=== PATIENT | male | born 1935 | race Caucasian/White ===

== ENCOUNTER 2023-10-09 12:08 | Inpatient (IN) | payer OTHER, SELFPAY ==
[2023-10-09] VITALS (10 sets, daily range): BP systolic 142–172; BP diastolic 56–74; BMI 23.7
[2023-10-09 09:51] LABS: % Basophils 0.3 % (0-2); % Eosinophils 0.8 % (0-6); % Immature Granulocytes 0.5 % (0-0.5); % Lymphocytes 8.7 % (20.5-51.1); % Monocytes 6.3 % (1.7-9.3); % Neutrophils 83.4 % (42.2-75.2); Absolute Basophils 0.1 10^3/uL (0-0.2); Absolute Eosinophils 0.2 10^3/uL (0-0.7); Absolute Immature Granulocytes 0.1 10^3/uL (0-0.05); Absolute Lymphocytes 1.8 10^3/uL (1.2-3.4); Absolute Monocytes 1.3 10^3/uL (0.1-0.6); Absolute Neutrophils 17.6 10^3/uL (1.4-6.5); Hematocrit 35.3 % (39.0-52.0); Hemoglobin 12.1 g/dL (13.0-18.0); Mean Corp Hgb Conc. 34.3 g/dL (33.0-37.0); Mean Corpuscular Hgb 31.4 pg (27.0-31.0); Mean Corpuscular Volume 91.7 fL (80.0-94.0); Mean Platelet Volume 10.7 fL (7.4-10.4); Nucleated Red Blood Cells % 0 % (-); Platelet Count 239 10^3/uL (130-400); Red Blood Cell Count 3.85 10^6/uL (4.70-6.10); Red Cell Dist. Width 13.2 % (11.5-14.5); White Blood Cell Count 21.1 10^3/uL (4.8-10.8)
--- NOTE | 2023-10-09 10:01 | ED.GENMED ---
History of Present Illness
General
Chief Complaint: Weakness
Source: patient
Exam Limitations: none
Time Seen by Provider: 10/09/23 09:39
Nursing documentation reviewed up to this point in time: agreed with
Travel History
Have you had any contact with someone who has COVID-19?: No
Do you have any symptoms of coronavirus? Fever > 100 degrees, chills, cough, shortness of breath, sore throat, loss of taste or smell, muscle aches, or headache?: No
History of Present Illness
History of Present Illness:
88-year-old male with past medical history of hip fracture to left side 2021, BPH with indwelling Nunez presenting to the emergency department today with concerns of generalized weakness fatigue worsening over the past few days has had some degree
of fatigue over the past few months. Denies any recent illness upper respiratory infection chest pain shortness of breath no specific urinary issues has had some mild left-sided hip pain but does have a history of arthritis to the area and had
previous repair in 2021 after fracture. Denies any change in bowel movements black or tarry stool.
Review of Systems
Review of Systems
Allergies reviewed?: Yes
All Other Systems: ROS reviewed and negative except as documented in HPI and ROS
Phy Exam
Physical Exam
Physical Exam:
GENERAL: Alert , in no apparent distress
EYE: pupils equal and reactive
NECK: Supple, no significant adenopathy.
ENT: o/p clr, mmm.
CARDIAC: Regular rate and rhythm .
LUNGS: Clear breath sounds bilaterally, no acute respiratory distress, no wheezes/rales/rhonchi
ABDOMEN: Soft, without focal tenderness, no r/g, no cvat
NEUROLOGICAL: Alert and oriented, no focal neuro deficits
SKIN: Warm and dry, skin intact.
MUSCULOSKELETAL: No edema, well perfused.
PSYCH: Normal and appropriate interaction.
Course
Orders/Labs/Results
Orders:
Orders
10/09/23
Electrocardiogram (*1) Stat
Reason for Study: Chest Pain
Comment: DONE
10/09/23 09:41
EKG [Electrocardiogram (*1)] Urgent
Reason for Study: Fatigue / Weakness
EKG- Treatment ONCE
CMP [Comprehensive Metabolic Panel] Urgent
Complete Blood Count/With Diff Urgent
TSH Reflex To Free T4 Urgent
Comment: ADDED
10/09/23 09:42
Add On- LAB Urgent
Tests Added?: tsh free t4
10/09/23 09:44
Troponin I Urgent
10/09/23 10:13
Urinalysis Reflex To Culture Urgent
Date Specimen was Collected: 10/09/23
Time Specimen was Collected: 10:12
10/09/23 10:34
Aspirin 325 mg PO NOW STA
10/09/23 10:38
Chest X-ray Portable [CR Chest Portable - 1 View] Urgent
Comment:
Reason For Exam: cp nstemi
Reason Study Needs to be Portable: Patient Unstable
10/09/23 11:16
Heparin 4,000 units IV NOW STA
Nursing to Place Non Medication Order As Directed
Physician Order: PTT 6 hours after initial start of Heparin infusion
10/09/23 11:20
PTT Urgent
Comment: Obtain baseline before beginning heparin infusion if not already collected
10/09/23 11:30
Heparin 21585 Units/250 ml 25,000 units in 250 ml IV PER PROTOCOL
Weight to be used for heparin protocol in kilograms (kg):: 74.8
Protocol:: Cardiac Tx/Acute Coronary
PTT Goal Range to be used:: PTT 73 to 111 seconds
Order type:: Initial
INITIAL Infusion Dose (UNITS/KG/hr) & then follow protocol:: 12 units/kg/hr
Infusion Dose in UNITS/hr & then follow protocol (UNITS/hr):: 900
INFUSION RATE in mL/hr & then follow protocol (mL/hr):: 9
PTT less than or equal to 64 seconds:: Increase rate by 200 units/hr (+ 2 mL/hr)
PTT 64.1 to 72.9 seconds:: Increase rate by 100 units/hr (+ 1 mL/hr)
PTT 73 to 111 seconds:: Target Range. No change in rate.
PTT 111.1 to 130.9 seconds:: Decrease rate by 100 units/hr (- 1 mL/hr)
PTT 131 to 199.9 seconds:: HOLD for 1 hr. Then decrease rate by 200 units/hr (- 2 mL/hr)
PTT greater than or equal to 200 seconds:: HOLD for 2 hrs & Notify Provider. Then decrease by 200 units/hr (-
2 mL/hr)
Lab follow-up:: Each change, PTT q6h until 2 consecutive are therapeutic. Then PTT
daily.
10/09/23 11:45
Echo 2D MMode Color/Doppler Routine
Reason for Study: NSTEMI
0.9% Sodium Chloride 1000 ml [Nss] 1,000 ml IV 100 mls/hr
US Renal Only W/O Bladder Routine
Comment:
Reason For Exam: MAUREEN vs CKD
10/09/23 11:48
Admit/Transfer Patient As Directed
Co-Sign Provider:
Level of Care: Inpatient admission
Assign to:: IVU
Physician / Group: Chelle
Diagnosis: NSTEMI
Reason for Hospitalization: NSTEMI
Expected length of stay greater than two midnights?: Yes
ELOS- Estimated Length of Stay in days: 3
I certify the patient meets the requirements for IP care: Yes
10/09/23 11:49
Code Status As Directed
Resuscitation Status: Full Code
10/09/23 11:56
Bladder Scan As Directed
Follow Bladder Retention/Intermittent Cath Algorithm?: Yes
PRN if no void in __ hours: 6
Frequency: Per Retention Algorithm
If Bladder Scan Result >: 400
then:: Straight cath
Straight Cath As Directed
Frequency: Per Retention Algorithm
Additional Instructions: straight cath as needed per acute urinary retention algorithm for 24 hrs
Additional Instructions: for bladder scan greater than 400 mL
10/09/23 11:59
COVID-19 Antigen Stat
Source: Nasal Swab
Lipid Profile [Cardiovascular Evaluation] Urgent
Influenza A+B Rapid Molecular Stat
BULMARO Source: Nasal Swab
Specimen Description:
10/09/23 12:[address] See Dose Instructions IV DIRECTED
Abnormal Lab Results
10/09/23 10/09/23 10/09/23
09:41 09:44 11:20
WBC 21.1 H 10^3/uL
(4.8-10.8)
RBC 3.85 L 10^6/uL
(4.70-6.10)
Hgb 12.1 L g/dL
(13.0-18.0)
Hct 35.3 L %
(39.0-52.0)
MCH 31.4 H pg
(27.0-31.0)
MPV 10.7 H fL
(7.4-10.4)
Abs Immat Gran (auto) 0.1 H 10^3/uL
(0-0.05)
Absolute Neuts (auto) 17.6 H 10^3/uL
(1.4-6.5)
Absolute Monos (auto) 1.3 H 10^3/uL
(0.1-0.6)
Neutrophils % 83.4 H %
(42.2-75.2)
Lymphocytes % 8.7 L %
(20.5-51.1)
APTT 39.1 H Sec
(23.4-35.0)
Sodium 131 L mmol/L
(135-145)
BUN 28 H mg/dl
(9-20)
Creatinine 1.4 H mg/dL
(0.7-1.3)
Glucose 146 H mg/dl
(70-99)
AST 68 H U/L
(17-59)
Troponin I 2.830 H* ng/ml
10/09/23 09:41
10/09/23 09:41
Vital Signs
Initial and Last Documented VS:
Initial Vital Signs
Temp Pulse Resp BP Pulse Ox
98.2 F 69 18 155/59 97
10/09/23 09:26 10/09/23 09:26 10/09/23 09:26 10/09/23 09:26 10/09/23 09:26
Last Documented Vital Signs
Temp Pulse Resp BP Pulse Ox
98.2 F 63 18 155/60 98
10/09/23 09:26 10/09/23 11:00 10/09/23 11:00 10/09/23 11:00 10/09/23 10:30
MDM/Problems Addressed
MDM/Problems Addressed:
88-year-old male presenting to the emergency department today with concerns of generalized weakness fatigue difficulty getting around today secondary to the symptoms. Denies specific chest pain shortness of breath or any specific additional issues.
Does have an indwelling Nunez catheter. Vital signs upon arrival show mildly elevated blood pressure but otherwise vital signs are normal. Initial blood count showing white count of 21.1. No specific infectious symptoms afebrile normal heart
rate. Unclear source of patient's leukocytosis not on steroids. Otherwise troponin level coming back elevated 2.83. EKG Case was discussed with cardiology patient started on heparin and also given dose of aspirin plan to admit for further
monitoring and assessment.
*Critical Care Note
Total Time (30-74mins, 75-104mins- exclusive of procedures): Not Applicable
ED Attending Note
-
Portions of this chart may have been created with voice recognition software.� Occasional wrong word or��sound alike� substitutions may have occurred due to the inherent limitations of voice recognition software.
Discharge Plan
Departure
Patient Disposition: Admit
Date of Disposition: 10/09/23
Time of Disposition: 11:51
Admit to: Telemetry
Admit to doctor: Chelle
Presentation/result/management discussed w/ accepting MD/DO: Hospitalist
Patient with high blood pressure during this ER visit?: No
Condition: Good
Covid-19: Not Applicable
Discharge Problem:
Non-ST elevation MA (NSTEMI), Leukocytosis
Interventions
Interventions:
*Risk Screen - Suicide Last Done: 10/09/23 09:37
*General Assessment Last Done: 10/09/23 09:26
*Neglect/Abuse Screening Last Done: 10/09/23 09:37
*ED COVID-19 Vaccine History Last Done: 10/09/23 09:37
ED- Cardiac Assessment Last Done: 10/09/23 09:37
ED- Neurological Assessment Last Done: 10/09/23 09:37
ED- Pulmonary Assessment Last Done: 10/09/23 09:37
[2023-10-09 10:04] LABS: ALT (SGPT) 26 U/L (0-50); AST (SGOT) 68 U/L (17-59); Albumin 3.7 g/dl (3.5-5.0); Alkaline Phosphatase 56 U/L (38-126); Blood Urea Nitrogen 28 mg/dl (9-20); Calcium 8.8 mg/dl (8.4-10.2); Carbon Dioxide 26 mmol/L (22-30); Chloride 101 mmol/L (98-107); Estimated Creatinine Clearance 37 ml/min; Glucose 146 mg/dl (70-99); Potassium 3.9 mmol/L (3.5-5.1); Sodium 131 mmol/L (135-145); Total Bilirubin 0.6 mg/dl (0.2-1.3); Total Protein 6.3 g/dl (6.3-8.2); eGFR 48.04
[2023-10-09 10:31] LABS: Urine Albumin Negative (Neg - Trace); Urine Bilirubin Negative (Negative); Urine Character Clear (Clear); Urine Color Yellow; Urine Glucose Negative (Negative); Urine Ketone Negative (Negative); Urine Leukocyte Negative (Negative); Urine Nitrite Negative (Negative); Urine Occult Blood Negative (Negative); Urine Specific Gravity 1.015 (<1.030); Urine Urobilinogen Negative (Neg - 1+)
[2023-10-09 10:35] LABS: TSH Reflex To Free T4 2.01 uIU/ml (0.47-4.68)
[2023-10-09] MEDS: ASPIRIN 325 MG PO (10:37)
[2023-10-09] MEDS: HEPARIN 4000 UNITS IV (11:26)
--- NOTE | 2023-10-09 11:26 | HPS.HSE ---
Family Physician
-
Family Physician: Wally Looney
Chief Complaint
-
Weakness
History of Present Illness
88 y/o M with PMHx:
L hip fx 2021
BPH
who p/w CC weakness. Over the last 3 days the pt states he's been 'laid up.' He has been too weak to do his usual walking daily. He denies any other acute complaints. Specifically he denies headache, visual disturbances, neck stiffness, chest
pain, shortness of breath, cough, nausea, vomiting, diarrhea, abdominal pain, rash, dysuria, focal neurological deficit. On routine labs in the ER the patient's troponin was found to be elevated.
Medical History
Past Medical History
Past Medical History: Reports Other (as per HPI)
Past Surgical History: Reports Other (N/A)
Social History
Tobacco: Non-smoker
Alcohol: Occasional
Drug: None
Family History
Family History: Not pertinent
Allergies / Home Medications
Allergies reflects when Allergies were last updated in [facility].
Home Medications with original date entered in [facility]
Allergy/Medication List:
Allergies
Allergy/AdvReac Type Severity Reaction Status Date / Time
No Known Allergies Allergy Unverified 10/09/23 10:33
Home Medications
Vitamin D3 3,800 unit PO QPM 10/09/23
calcium citrate 315 mg-vitamin D3 5 mcg (200 unit) tablet (Calcium Citrate + D) 1 tab PO BID 10/09/23
leuprolide (3 month) 22.5 mg (3 month) subcutaneous syringe (Eligard) 22.5 mg SC [id number] 10/09/23
multivitamin 1 tab PO DAILY 10/09/23
Review of Systems
-
History Source: Patient
A 12 point ROS was completed and negative except as noted: Yes
Physical Exam
Vital Signs
Vital Signs
Temp Pulse Resp BP Pulse Ox
98.2 F 63 18 155/60 98
10/09/23 09:26 10/09/23 11:00 10/09/23 11:00 10/09/23 11:00 10/09/23 10:30
Physical Exam
General: Other (.)
Laboratory Results
-
10/09/23 09:41
10/09/23 09:41
Laboratory Results
Total Bilirubin 0.6 mg/dl (0.2-1.3) 10/09/23 09:41
AST 68 U/L (17-59) H 10/09/23 09:41
ALT 26 U/L (0-50) 10/09/23 09:41
Alkaline Phosphatase 56 U/L (38-126) 10/09/23 09:41
Troponin I 2.830 ng/ml H* 10/09/23 09:44
Impression/Plan
-
Gen: NAD, AAOx3.
Eyes: EOMI, PERRLA, no scleral icterus.
Neck: supple.
CV: RRR, +S1/S2, no m/r/g.
Resp: CTAB, no rales, wheezes, or rhonchi.
Abd: +BS, soft, NT, ND
Skin: No rashes.
Neuro: CN 2-12 intact, non-focal.
Psych: Normal mood and affect.
NSTEMI:
-ECG (read by me): SR with 1st deg AVB @ 65, nl axis, QTc 478ms, TWi I, aVL, V2, TW-flattening V3-V6
-Trop 2.830, trend
-cont heparin gtt started in ER
-ASA 325mg given in ER, cont with 81mg daily
-HR low 60s, no BB at this moment
-check FLP, start statin
-check echo
-c/s cards
-monitor on tele
-NPO except meds in case cath needed
MAUREEN vs CKD:
-Unknown baseline Cr
-IVFs, trend Cr
-check renal U/S
Leukocytosis with L shift:
-afebrile
-CXR read pending, no infiltrate on my read
-check Flu/COVID
BPH:
-currently with condom cath
-bladder scans with urinary retention protocol
FULL/Heparin
[2023-10-09 11:37] LABS: APTT 39.1 Sec (23.4-35.0)
[2023-10-09] MEDS: HEPARIN 25000 UNITS/250 ML IV (11:42)
[2023-10-09] MEDS: NSS 1000 IV (12:13)
[2023-10-09 12:23] LABS: COVID-19 Antigen Negative (Negative); HDL Cholesterol 46 mg/dl; LDL Cholesterol, Calculated 124 mg/dl; Total Cholesterol 187 mg/dl (50-199); Triglyceride 89 mg/dl (10-149); Very Low Density Lipoprotein 17 mg/dl (0-30)
--- NOTE | 2023-10-09 14:16 | PTCARENOTE ---
Received pt from ED. Heparin gtt and NSS infusing. Aox3, no complaints of pain. Pt assist x1-2 to bed. Oriented pt and to unit and room. Call hutchison within reach.
--- NOTE | 2023-10-09 14:45 | W.PN.UPDATE ---
Update Note
Progress Note Update
Repeat troponin is flat. Patient may have a cardiac diet at this time. Also of note the patient now states that he did eat breakfast and therefore will need a fasting lipid profile in the morning (one done earlier not usable).
[2023-10-09 17:53] LABS: APTT 162.3 Sec (23.4-35.0)
[2023-10-09] MEDS: LIPITOR 40 MG PO (17:57)
[2023-10-09] MEDS: NSS IV (21:33)
--- NOTE | 2023-10-09 21:36 | PTCARENOTE ---
Pt received at start of shift, HR SR 60s-70s. Pt in bed. Condom cath 21g placed on pt. pt tolerated. Pt AAOx3, however pt forgetful. Heparin infusing at 700units/hr per protocol. NSS infusing at 100mL/hr per protocol. Educated pt on NSTEMI and
significance of troponin enzyme. Pt needs further reinforcement. Pt denies any CP, SOB, or lightheadedness/dizziness at this time. Informed to notify RN if any changes, call hutchison within reach.
[2023-10-10] VITALS (7 sets, daily range): BP systolic 130–171; BP diastolic 52–72
[2023-10-10 02:45] LABS: Hematocrit 34.1 % (39.0-52.0); Mean Corp Hgb Conc. 35.2 g/dL (33.0-37.0); Mean Corpuscular Hgb 31.8 pg (27.0-31.0); Mean Corpuscular Volume 90.5 fL (80.0-94.0); Platelet Count 231 10^3/uL (130-400); Red Blood Cell Count 3.77 10^6/uL (4.70-6.10); Red Cell Dist. Width 12.9 % (11.5-14.5); White Blood Cell Count 15.8 10^3/uL (4.8-10.8)
[2023-10-10 02:59] LABS: ALT (SGPT) 25 U/L (0-50); APTT 53.7 Sec (23.4-35.0); AST (SGOT) 57 U/L (17-59); Albumin 3.3 g/dl (3.5-5.0); Alkaline Phosphatase 66 U/L (38-126); Blood Urea Nitrogen 18 mg/dl (9-20); Calcium 8.6 mg/dl (8.4-10.2); Carbon Dioxide 25 mmol/L (22-30); Chloride 104 mmol/L (98-107); Estimated Creatinine Clearance 42 ml/min; Glucose 102 mg/dl (70-99); HDL Cholesterol 54 mg/dl; LDL Cholesterol, Calculated 122 mg/dl; Potassium 4.1 mmol/L (3.5-5.1); Sodium 131 mmol/L (135-145); Total Bilirubin 0.5 mg/dl (0.2-1.3); Total Cholesterol 199 mg/dl (50-199); Total Protein 5.9 g/dl (6.3-8.2); Triglyceride 116 mg/dl (10-149); Very Low Density Lipoprotein 23 mg/dl (0-30); eGFR 57.81
--- NOTE | 2023-10-10 08:17 | CON.CAR ---
Addendum entered and electronically signed by José Miguel Delgado MD 10/10/23 10:22:
I saw and examined the patient.
The SOCIAL SERVICE WORKER's note was reviewed and I agree with the note.
Comment: 88-year-old male with BPH who presented to the emergency department with a chief complaint of weakness.� He reports he feels 'fine' and his made him come.� He does not recall his chief complaint of weakness.� Cardiology was consulted
for abnormal troponin with an initial troponin 2.8, since trending down. He has no ischemic symptoms at this point. We will continue to treat medically and a TTE is pending.
Unclear etiology for elevated troponin likely nonischemic myocardial injury.
- start valsartan, aspirin and statin
- tte pending
Original Note:
Consultation
Consultation Request
Date/Time Consultation Requested: 10/10/23 06:30
Date/Time Consultation Performed: 10/10/23 08:00
Requesting Provider: KAYLEE Trinidad
Performing Provider: KAYLEE Ramírez for Dr. Delgado
Reason for Consultation: Abnormal troponin
Medical History
-
Chief Complaint: Weakness
History of Present Illness:
Yamil Dyer is an 88-year-old male with BPH who presented to the emergency department with a chief complaint of weakness. He reports he feels 'fine' and his made him come. He does not recall his chief complaint of weakness. Cardiology was
consulted for abnormal troponin. Initial troponin 2.8. He denies chest pain, shortness of breath, dizziness, nausea, and diaphoresis. At the time of this consultation he verbalized no complaints and was just asking for breakfast.
Past Medical History
Past Medical History: Other (BPH)
Past Surgical History: Orthopedic
Social History
Tobacco: Non-Smoker
Alcohol: Occasional
Drug: None
Personal:
Living: With Family
Employment: Retired
Family History
Family History: Reviewed & Not Pertinent
Allergies / Home Medications
Allergy/AdvReac Type Severity Reaction Status Date / Time
No Known Allergies Allergy Unverified 10/09/23 10:33
Medication Instructions Recorded Confirmed Type
Vitamin D3 3,800 unit PO QPM Supplement 10/09/23 10/09/23 History
calcium citrate 315 mg-vitamin D3 1 tab PO BID Supplement 10/09/23 10/09/23 History
5 mcg (200 unit) tablet (Calcium
Citrate + D)
leuprolide (3 month) 22.5 mg (3 22.5 mg SC [id number] 10/09/23 10/09/23 History
month) subcutaneous syringe
(Eligard)
multivitamin 1 tab PO DAILY Supplement 10/09/23 10/09/23 History
Review of Systems
-
History Source: Patient
All other systems: Negative unless noted
Constitutional: No Symptoms
EENT: No Symptoms
Respiratory: No Symptoms
Cardiac: No Symptoms
Abdomen/GI: No Symptoms
: No Symptoms
Musculoskeletal: No Symptoms
Skin: No Symptoms
Neurological: No Symptoms
Endocrine: No Symptoms
Hematologic/Lymphatic: No Symptoms
Physical Exam
Vital Signs
Temp Pulse Resp BP Pulse Ox
97.8 F 60 20 152/56 93
10/10/23 07:53 10/10/23 03:00 10/10/23 07:53 10/10/23 02:51 10/10/23 07:53
Lab Results
10/10/23 02:18
10/10/23 02:18
Troponin I 2.190 ng/ml H* 10/09/23 20:13
Physical Exam
General: Well Developed, Well Nourished, No Apparent Distress and Comfortable
HEENT: Normocephalic, Anicteric and Moist Mucous Membranes
Respiratory: Clear
Cardiac: S1/S2 and Regular Rhythm; Negative Peripheral Edema
Breast: Deferred by me
GI: Soft, Non Tender, Non Distended and Normal Bowel Sounds
Rectal: Deferred by Provider
Genito-urinary: No Costovertebral Tender
Musculoskeletal: No Clubbing, No Cyanosis and No Edema
Skin: Warm and Dry
Neuro: AO x 3
Hematologic/Lymphatic: No Lymphadenopathy
Psych: Calm
Impression / Plan
-
Abnormal troponin, likely non-ischemic myocardial injury
-Chest pain free
-Peak troponin 2.830 (initial)
-He is not interested in intervention
-Atorvastatin 40mg started, continue ASA 81mg
-Echocardiogram today
HTN
-Start valsartan 40mg once daily
Leukocytosis, per primary
Chance is on his home medication list, he states he does not take this, will confirm with his
Data Reviewed
-
EKG: Report Reviewed by me (Sinus rhythm, first degree AV block, lateral T wave abnormality)
Radiology: Report Reviewed by me (CXR: No active cardiopulmonary disease.)
Ultrasound: Report Reviewed by me (Renal: Medical renal disease. No shadowing calculus or hydronephrosis. Bilateral cysts.)
Labs: Labs Reviewed by me
[2023-10-10] MEDS: NSS IV (08:27)
[2023-10-10] MEDS: LOW STRENGTH ASPIRIN 81 MG PO (08:27)
--- NOTE | 2023-10-10 08:51 | PTCARENOTE ---
Rec'd pt this shift AAO x 3, forgetful at times. Heparin d/c'd this am. Pt denies CP, denies sob. Am meds given. Pt NSR on monitor. RA. See worklist for VS/I and O and assessments.
[2023-10-10 09:27] LABS: Glycohemoglobin (HgbA1c) 6.1 % (4.0-5.6)
--- NOTE | 2023-10-10 12:21 | CM ---
Reviewed chart. Met with and Mrs. Dyer to review discharge plans. He states prior to admission he resides with his spouse in an apartment at [facility]. He states he has been there a year. He states prior to admission he was ambulating with
a rollator. He borrowed the rollator. He states he has been in [facility] in the past for SNF/Rehab. He states he would like to explore [facility] or [facility] if SNF/Rehab. indicated. Will need pre-cert for SNF/Rehab.
He states he would be agreeable to VNA services if indicated. Will need to have physical and occupational evaluations to see if he will have any skilled care needs. Medical work-up in progress. The discharge plan is to return home with his spouse
and VNA Services versus SNF/Rehab. if indicated and approved by insurance when medically stable.
--- NOTE | 2023-10-10 14:38 | PTCARENOTE ---
Pt sent for ECHO at this time.
[2023-10-10] MEDS: DIOVAN 40 MG PO (15:05)
--- NOTE | 2023-10-10 15:50 | W.PN.HOSP.TC ---
Today's Communication/Plan
-
f/u echo
ASA, Statin, valsartan
Assessment / Plan
Assessment / Plan
Gen: NAD, AAOx3.
Eyes: EOMI, PERRLA, no scleral icterus.
Neck: supple.
CV: RRR, +S1/S2, no m/r/g.
Resp: CTAB, no rales, wheezes, or rhonchi.
Abd: +BS, soft, NT, ND
Skin: No rashes.
Neuro: CN 2-12 intact, non-focal.
Psych: Normal mood and affect.
NSTEMI:
-Trop 2.830, trending down
-ASA 325mg given in ER, cont with 81mg daily
--check FLP, start statin
-check echo
-c/s cards
-monitor on tele
-Start valsartan
-hep ggt as per cards
MAUREEN vs CKD 3a:
-Unknown baseline Cr
-IVFs, trend Cr
-renal us without acute findings
Leukocytosis with L shift:
-afebrile
-most likely stress related
-ctm
#Hyponatremia
-ctm
-mild
BPH:
-currently with condom cath
-bladder scans with urinary retention protocol
FULL/Heparin
Total time spent on today's encounter was 50 minutes which included time spent in counseling the patient/family regarding diagnosis and treatment plan as listed above, goals of care, and symptom management. Case was discussed with nursing staff,
specialists, and care coordinators/case management. All labs and imaging personally reviewed by me. Remainder the time spent in detailed review of previous records, lab data, imaging, and other medical provider documentation.
Anticipated Discharge: 24 - 48 hours
Subjective/Interval History
-
Date of Service: October 10, 2023
no acute events overnight
Objective Data
-
Vital Signs:
Vital Signs
Temp Pulse Resp BP Pulse Ox
98.0 F 66 18 162/72 97
10/10/23 15:02 10/10/23 15:45 10/10/23 15:02 10/10/23 15:02 10/10/23 15:02
I&O
10/09/23 10/10/23 10/11/23
06:59 06:59 06:59
Output Total 1900 / 1900 650 / 650
Balance -1900 / -1900 -650 / -650
Review of Systems
-
History Source: Patient
All other systems: Not reviewed unless documented
Data Reviewed
-
Diagnostic Radiology: Image personally visualized and interpreted and Report Reviewed by me
Ultrasound: Image personally visualized and interpreted
Labs: Labs Reviewed by me
[2023-10-10] MEDS: LIPITOR 40 MG PO (17:24)
--- NOTE | 2023-10-10 21:34 | PTCARENOTE ---
Pt received start of shift, HR SR 1st degree HB 60s-90s. Pt in bed. Condom catheter in place, draining yariel urine. pt bathed with bathing wipes, linens and gown changed. Pt denies any CP, SOB, or lightheadedness/dizziness at this time. Informed to
notify RN if any changes, call hutchison within reach.
[2023-10-11] VITALS (8 sets, daily range): BP systolic 104–159; BP diastolic 50–76; PULSE 85; O2SAT 98; BMI 23.5
[2023-10-11 04:06] LABS: Hematocrit 35.1 % (39.0-52.0); Hemoglobin 12.2 g/dL (13.0-18.0); Mean Corp Hgb Conc. 34.8 g/dL (33.0-37.0); Mean Corpuscular Hgb 30.7 pg (27.0-31.0); Mean Corpuscular Volume 88.2 fL (80.0-94.0); Mean Platelet Volume 10.6 fL (7.4-10.4); Platelet Count 263 10^3/uL (130-400); Red Blood Cell Count 3.98 10^6/uL (4.70-6.10); Red Cell Dist. Width 12.8 % (11.5-14.5); White Blood Cell Count 11.7 10^3/uL (4.8-10.8)
[2023-10-11 04:30] LABS: Blood Urea Nitrogen 20 mg/dl (9-20); Calcium 8.9 mg/dl (8.4-10.2); Carbon Dioxide 25 mmol/L (22-30); Chloride 100 mmol/L (98-107); Estimated Creatinine Clearance 46 ml/min; Glucose 105 mg/dl (70-99); Magnesium 2.2 mg/dl (1.6-2.3); Potassium 4.2 mmol/L (3.5-5.1); Sodium 132 mmol/L (135-145); eGFR > 60.00
[2023-10-11] MEDS: LOW STRENGTH ASPIRIN 81 MG PO (08:26)
[2023-10-11] MEDS: DIOVAN 40 MG PO (08:26)
--- NOTE | 2023-10-11 08:33 | W.PN.CD ---
Today's Communication / Plan
-
No further cardiac workup.
PT/OT consult.
Stable for outpatient follow up.
Thank you for this interesting consult. Signing off. Please call with questions.
Impression / Plan
-
Impression/Plan: 88 y/o male with HTN admitted with 'weakness', found to have abnormal troponin elevation in the absence of chest pain.
#Abnormal troponin
-Likely non-ischemic myocardial injury.
-Peak troponin 2.830 (initial).
-Echocardiogram shows normal LV wall motion.
-He is not interested in intervention.
-Atorvastatin 40mg started, continue ASA 81mg.
#HTN
-BP moderatly elevated (140-160's).
-Start valsartan 40mg once daily.
#Deconditioning
-PT/OT consult.
Subjective/Interval History:
No acute events.
No cardiac complaints.
He feels he cannot walk as well as he used to.
DATA:
TTE, 10/10/2023:
CONCLUSIONS
�Normal left ventricular size, wall thickness and systolic function.
�No regional wall motion abnormalities are seen.
�LV ejection fraction is 55% by Olivarez's method of discs.
�Stage I diastolic dysfunction suggestive of abnormal relaxation.
�Normal right ventricular size and function.
�No significant valvular disease.
�No prior study for comparison.
Physical Exam
Vital Signs/Labs
Vital Signs
Temp Pulse Resp BP Pulse Ox
36.6 C 69 16 159/76 97
10/11/23 08:28 10/11/23 08:26 10/11/23 08:28 10/11/23 08:26 10/11/23 08:28
10/09/23 10/10/23 10/11/23
11:59 11:59 11:59
Actual Weight 72.9 kg
10/11/23 03:46
03/12/24 03:46
APTT Cancelled 10/10/23 09:20
Magnesium 2.2 mg/dl (1.6-2.3) 10/11/23 03:46
Triglycerides 116 mg/dl (10-149) 10/10/23 02:18
LDL Cholesterol, Calc 122 mg/dl 10/10/23 02:18
VLDL Cholesterol, Calc 23 mg/dl (0-30) 10/10/23 02:18
HDL Cholesterol 54 mg/dl 10/10/23 02:18
LAB Results
10/09/23 10/09/23 10/09/23
09:44 12:37 14:05
Troponin I 2.830 H* 2.350 H* 2.590 H*
10/09/23 10/09/23
17:19 20:13
Troponin I 2.160 H* 2.190 H*
Physical Exam
Constitutional: No acute distress and Comfortable
EENT: Anicteric and Moist mucous membranes
Cardiovascular: Rhythm & rate is regular, Pedal edema is absent, JVD pressure is normal, S1S2 is normal and Murmur/rub/gallop absent
Respiratory: Respiratory effort normal, Lungs clear to auscul., Wheeze Absent, Crackles Absent and Rhonchi Absent
GI: Soft, Distention absent, Flat, Non tender and Normal bowel sounds
Neuro/Psych: AO x 3
Data Reviewed
-
Date of Service: October 11, 2023
Medical Decision Making: External Notes and Reviewed Test Results
EKG: Tracing Personally Visualized and interpreted and Report Reviewed by me
Echo: Tracing Personally Visualized and interpreted and Report Reviewed by me
X-Ray/CT/US/MRI/NUC/PET: Image Personally Visualized and interpreted and Report Reviewed by me
Medical Tests (PFT, Pathology etc): Image Personally Visualized and interpreted and Report Reviewed by me
Labs: Labs Reviewed by me
Old Records: Reviewed
[2023-10-11 10:37] LABS: Urine Albumin Negative (Neg - Trace); Urine Bilirubin Negative (Negative); Urine Character Clear (Clear); Urine Color Yellow; Urine Glucose Negative (Negative); Urine Ketone Negative (Negative); Urine Leukocyte Negative (Negative); Urine Nitrite Negative (Negative); Urine Occult Blood 4+ (Negative); Urine Specific Gravity 1.015 (<1.030); Urine Urobilinogen Negative (Neg - 1+)
[2023-10-11 11:36] LABS: Urine Mucus Moderate
[2023-10-11 11:37] LABS: Urine Amorphous Seen
[2023-10-11 11:38] LABS: Urine Bacteria Few (Negative); Urine Red Blood Cell 26-30 /HPF (0-2)
--- NOTE | 2023-10-11 13:50 | PN.CDI ---
CDI
- -
CDI:
Physician Documentation Request
Admit Date: 10/09/23 12:08
Dear Doctor Mary,
Please review the following and provide your response in the progress notes.
Clinical Indicators:
Pt admitted with MAUREEN vs CKD/ NSTEMI
There is potentially conflicting documentation in the record regarding the troponin elevation.
Documented per H&P and progress note 10/09, ' NSTEMI: Trop 2.830...'
Cardiology consult and Progress note 10/10,' Abnormal troponin Likely non-ischemic myocardial injury. Peak troponin 2.830 (initial)...'
Please provide a diagnosis for the troponin elevation that is the most correct :
Non-ischemic myocardial injury
NSTEMI
Other
Use of terms such as suspected, likely, concern for, or probable (associated with a specific diagnosis that is being evaluated, monitored, or treated as if it exists) are acceptable and can be coded in the inpatient setting, when documented at the
time of discharge.
Thank you,
Evon Crisostomo RN
CDI Specialist
[place] [facility]
Please use your independent medical judgment in providing your response.
--- NOTE | 2023-10-11 16:08 | W.PN.HOSP.TC ---
Addendum entered and electronically signed by Kyle Hernandez MD 10/11/23 16:16:
dc ready, pending placement
Original Note:
Today's Communication/Plan
-
dc
asa, statin, valsartan
Assessment / Plan
Assessment / Plan
Gen: NAD, AAOx3.
Eyes: EOMI, PERRLA, no scleral icterus.
Neck: supple.
CV: RRR, +S1/S2, no m/r/g.
Resp: CTAB, no rales, wheezes, or rhonchi.
Abd: +BS, soft, NT, ND
Skin: No rashes.
Neuro: CN 2-12 intact, non-focal.
Psych: Normal mood and affect.
#Abnormal Troponin
-Likely non ischemic myocardial injury
-Trop 2.830, trending down
-ASA 325mg given in ER, cont with 81mg daily
--check FLP, start statin
-check echo - no wall motion abnormality
-Not interested in intervention
-Start valsartan
-CKD 3a:
-Unknown baseline Cr
-IVFs, trend Cr
-renal us without acute findings
Leukocytosis with L shift:
-afebrile
-most likely stress related
-ctm
#Hyponatremia
-ctm
-mild
-f/u outpatient
BPH:
-currently with condom cath
-bladder scans with urinary retention protocol
FULL/Heparin
More than 30 minutes spent in discharge including
Final examination of the patient
Summarizing hospital stay
Instructions for continuing care to all relevant caregivers
Preparation of discharge records, prescriptions, and referral forms
Total time spent (in minutes):
Anticipated Discharge: Today
Subjective/Interval History
-
Date of Service: October 11, 2023
no acute events
Objective Data
-
Labs:
Laboratory Results
10/11/23
03:46
WBC 11.7 H
Hgb 12.2 L
Hct 35.1 L
Plt Count 263
Sodium 132 L
Potassium 4.2
Chloride 100
Carbon Dioxide 25
BUN 20
Creatinine 1.1
Glucose 105 H
Calcium 8.9
Vital Signs:
Vital Signs
Temp Pulse Resp BP Pulse Ox
98.0 F 80 16 109/58 98
10/11/23 15:23 10/11/23 11:45 10/11/23 15:23 10/11/23 11:33 10/11/23 15:23
I&O
10/10/23 10/11/23 10/12/23
06:59 06:59 06:59
Intake Total 500 / 500
Output Total 1900 / 1900 1900 / 1900
Balance -1900 / -1900 -1400 / -1400
Review of Systems
-
History Source: Patient
All other systems: Not reviewed unless documented
Data Reviewed
-
Diagnostic Radiology: Image personally visualized and interpreted and Report Reviewed by me
Ultrasound: Image personally visualized and interpreted
Labs: Labs Reviewed by me
--- NOTE | 2023-10-11 16:29 | CM ---
Reviewed chart. Reviewed physical therapy notes. Sent referral to [facility] to check on bed availability. Will need pre-cert with his insurance once bed is available.
[2023-10-11] MEDS: LIPITOR 40 MG PO (17:38)
[2023-10-11] MEDS: HEPARIN 5000 UNITS SC (23:33)
[2023-10-12 03:52] VITALS: BP 139/61
[2023-10-12 07:37] VITALS: BP 125/58
[2023-10-12 09:09] VITALS: BMI 22.8
[2023-10-12] MEDS: HEPARIN 5000 UNITS SC (09:14)
[2023-10-12] MEDS: LOW STRENGTH ASPIRIN 81 MG PO (09:16)
[2023-10-12 09:20] VITALS: BP 151/71
[2023-10-12] MEDS: DIOVAN 40 MG PO (09:21)
[2023-10-12 09:56] VITALS: BP 133/58
[2023-10-12 10:45] VITALS: BP 133/58; PULSE 79
--- NOTE | 2023-10-12 12:17 | CM ---
Addendum entered by Clair Geller 10/12/23 12:28:
SNF/Auth number is [id number]. The report number is ([phone]) and fax number is ([phone]).
Original Note:
Reviewed chart. Received telephone call from [facility] admission who states they can offer a bed for today. Met with MrGertrude and Mrs. Dyer to review. she wanted to know if [facility] has a bed. Telephone callto [facility]
admissions to check on bed availability. [facility] admissions states the state is there and she will not be able to look at the referral i=until this afternoon and she has to check on people ahead of him if they are accepting the bed. Reviewed
the above with Mrs. Dyer and she has selected to go to [facility]. [facility]. Approved seven days from 10/11 to 10/18/23 with NRD to 10/18/23. Updated Mrs. Dyer and reviewed out of pocket
cost for wheelchair van. Mrs. Dyer agree to out of pocket cost for wheelchair and called [facility]. Tentative arrangement made to go to [facility][1] at 1:00 p.m. today with [facility] wheel chair van. Left message for
[facility][1] Admission with auth and transfer date and time. Medical work-up in progress. The discharge plan is to go to [facility] when medically stable.
[2023-10-12 12:44] VITALS: BP 121/59
--- NOTE | 2023-10-12 13:23 | W.PN.HOSP.TC ---
Addendum entered and electronically signed by Kyle Hernandez MD 10/13/23 17:08:
[id number]
Addendum entered and electronically signed by Kyle Hernandez MD 10/13/23 16:39:
Non-ischemic myocardial injury
Original Note:
Today's Communication/Plan
-
dc
asa, statin, valsartan
F/u PCP, cards outpatient
bmp, cbc in 5 days
Assessment / Plan
Assessment / Plan
Gen: NAD, AAOx3.
Eyes: EOMI, PERRLA, no scleral icterus.
Neck: supple.
CV: RRR, +S1/S2, no m/r/g.
Resp: CTAB, no rales, wheezes, or rhonchi.
Abd: +BS, soft, NT, ND
Skin: No rashes.
Neuro: CN 2-12 intact, non-focal.
Psych: Normal mood and affect.
#Abnormal Troponin
-Likely non ischemic myocardial injury
-Trop 2.830, trending down
-ASA 325mg given in ER, cont with 81mg daily
- start statin
-echo - no wall motion abnormality
-Not interested in intervention
-Start valsartan
-CKD 3a:
-Unknown baseline Cr
-IVFs, trend Cr
-renal us without acute findings
-f/u bmp outpatient
Leukocytosis with L shift:
-afebrile
-most likely stress related
-ctm
-trending down, f/u outpatient
#Hyponatremia
-ctm
-mild
-f/u outpatient
BPH:
-currently with condom cath
-bladder scans with urinary retention protocol
FULL/Heparin
More than 30 minutes spent in discharge including
Final examination of the patient
Summarizing hospital stay
Instructions for continuing care to all relevant caregivers
Preparation of discharge records, prescriptions, and referral forms
Total time spent (35 in minutes):
Anticipated Discharge: Today
Subjective/Interval History
-
Date of Service: October 12, 2023
No acute events
Objective Data
-
Vital Signs:
Vital Signs
Temp Pulse Resp BP Pulse Ox
97.3 F 80 16 121/59 96
10/12/23 07:37 10/12/23 12:45 10/12/23 07:37 10/12/23 12:44 10/12/23 07:37
I&O
10/11/23 10/12/23 10/13/23
06:59 06:59 06:59
Intake Total 500 / 500 150 / 150
Output Total 1900 / 1900 500 / 500
Balance -1400 / -1400 -350 / -350
Review of Systems
-
History Source: Patient
All other systems: Not reviewed unless documented
Data Reviewed
-
Diagnostic Radiology: Image personally visualized and interpreted and Report Reviewed by me
Ultrasound: Image personally visualized and interpreted
Labs: Labs Reviewed by me
--- NOTE | 2023-10-12 13:26 | W.DS.TRANS ---
DC Summary - Educational Aide
-
Discharge Instructions:
Discharge Diagnosis/Procedures #Abnormal troponin
#HTN
#Deconditioning
Diet Low Fat,Low Cholesterol
Blood Work cbc, bmp with pcp in 5 days
Instructions:
Stand-Alone Forms:
Changes to Home Medications: Yes
Discharge Medications:
DC Medications w/original date entered in [employer]
Vitamin D3 3,800 unit PO QPM Supplement 10/09/23
calcium citrate 315 mg-vitamin D3 5 mcg (200 unit) tablet (Calcium Citrate + D) 1 tab PO BID Supplement 10/09/23
leuprolide (3 month) 22.5 mg (3 month) subcutaneous syringe (Eligard) 22.5 mg SC [id number] 10/09/23
multivitamin 1 tab PO DAILY Supplement 10/09/23
aspirin 81 mg chewable tablet (Children's Aspirin) 81 mg PO DAILY #0 tabs 10/12/23
atorvastatin 40 mg tablet 40 mg PO QPM #20 tabs 10/12/23
valsartan 40 mg tablet 40 mg PO DAILY #0 tabs 10/12/23
Home Medication Changes
aspirin 81 mg chewable tablet (Children's Aspirin) 81 mg PO DAILY #0 tabs 10/12/23
atorvastatin 40 mg tablet 40 mg PO QPM #20 tabs 10/12/23
valsartan 40 mg tablet 40 mg PO DAILY #0 tabs 10/12/23
Pending Results: No
== END 2023-10-12 14:35 | disposition home or self-care (01) | DRG 315 ==
LOC: IVU 12:08
PROVIDERS: Physician Assistant; ADMITTING PHYSICIAN Internal Medicine; ATTENDING PHYSICIAN Internal Medicine; EMERGENCY PHYSICIAN Emergency Medicine; FAMILY PHYSICIAN Family Medicine; OTHER PHYSICIAN Internal Medicine Cardiovascular Disease; REFERRING PHYSICIAN Urology
DX: I5A Non-ischemic myocardial injury (non-traumatic) (principal); E87.1 Hypo-osmolality and hyponatremia; N17.9 Acute kidney failure, unspecified; Z11.52 Encounter for screening for COVID-19; N40.1 Benign prostatic hyperplasia with lower urinary tract symptoms; I10 Essential (primary) hypertension; N18.31 Chronic kidney disease, stage 3a
CPT/HCPCS: 71045; 76775; 80048; 80053; 80061; 81003; 81015; 83036; 83735; 84443; 84484; 85025; 85027; 85730; 87502; 87811; 93005; 93306; 96374; 97163; 97166; 99285

== ENCOUNTER → 2023-10-19 10:07 | Outpatient (REF) | payer OTHER, SELFPAY ==
[2023-10-19 10:52] LABS: % Basophils 0.9 % (0-2); % Eosinophils 2.8 % (0-6); % Immature Granulocytes 0.9 % (0-0.5); % Lymphocytes 21.2 % (20.5-51.1); % Monocytes 8.1 % (1.7-9.3); % Neutrophils 66.1 % (42.2-75.2); Absolute Basophils 0.1 10^3/uL (0-0.2); Absolute Eosinophils 0.3 10^3/uL (0-0.7); Absolute Immature Granulocytes 0.1 10^3/uL (0-0.05); Absolute Lymphocytes 2.5 10^3/uL (1.2-3.4); Absolute Neutrophils 7.7 10^3/uL (1.4-6.5); Hematocrit 37.8 % (39.0-52.0); Hemoglobin 12.8 g/dL (13.0-18.0); Mean Corp Hgb Conc. 33.9 g/dL (33.0-37.0); Mean Corpuscular Volume 91.5 fL (80.0-94.0); Nucleated Red Blood Cells % 0 % (-); Platelet Count 335 10^3/uL (130-400); Red Blood Cell Count 4.13 10^6/uL (4.70-6.10); Red Cell Dist. Width 12.9 % (11.5-14.5); White Blood Cell Count 11.7 10^3/uL (4.8-10.8)
[2023-10-19 10:58] LABS: Blood Urea Nitrogen 29 mg/dl (9-20); Calcium 8.7 mg/dl (8.4-10.2); Carbon Dioxide 25 mmol/L (22-30); Chloride 104 mmol/L (98-107); Glucose 91 mg/dl (70-99); Magnesium 2.1 mg/dl (1.6-2.3); Phosphorus 4.6 mg/dl (2.5-4.5); Potassium 4.7 mmol/L (3.5-5.1); Sodium 135 mmol/L (135-145); eGFR 57.81
[2023-10-19 11:10] LABS: Vitamin D, 25-OH*** 52.4 ng/mL (30-80)
== END ==
LOC: OLABN 10:07
PROVIDERS: ATTENDING PHYSICIAN Student in an Organized Health Care Education/Training Program
DX: I21.4 Non-ST elevation (NSTEMI) myocardial infarction (principal); N17.9 Acute kidney failure, unspecified
CPT/HCPCS: 36415; 80048; 82306; 83735; 84100; 85025